=== PATIENT | female | born 1980 | race Caucasian/White ===

== ENCOUNTER 2017-06-26 16:43 | Emergency (ER) | payer MEDICAID, OTHER ==
[~2017-06-26] VITALS: Ht 170.2 cm; Wt 67.1 kg
[2017-06-26 17:11] VITALS: Ht 170.2 cm; Wt 67.1 kg
--- NOTE | 2017-06-26 19:34 | ERD ---
ER Documentation Chief Complaint Chief Complaint bladder and urine pain x 4 days; 6-9 weeks HPI This is a 37-year-old female presents to the ER with urinary frequency, dysuria blood in her urine for the last 4 days. Patient states she is currently 6-9 weeks . She denies any vaginal bleeding. She does admit to some pelvic pain. She denies any fevers or chills. She denies any flank pain. She has not had any nausea vomiting or diarrhea. ROS 12 point review of systems was done, all negative except per HPI. Medications Home Meds Active Scripts Cephalexin* (Keflex*) 500 Mg Capsule, 500 MG PO BID for 7 Days, CAP Prov:RANDI BENSON C 06/26/17 Allergies Allergies: Coded Allergies: tramadol (Unverified Allergy, Unknown, 06/26/17) PMhx/Soc Medical and Surgical Hx: pt denies Surgical Hx Hx Miscellaneous Medical Probl: Yes (lyme disease) Hx Alcohol Use: No Hx Substance Use: No Hx Tobacco Use: No Smoking Status: Never smoker Physical Exam Vitals Vital Signs Date Time Temp Pulse Resp B/P Pulse Ox O2 Delivery O2 Flow Rate FiO2 06/26/17 17:11 98.9 88 16 116/72 100 Physical Exam GENERAL: The patient is well developed and appropriate for usual state of health , in no apparent distress. HEENT: Atraumatic. CHEST: Clear to auscultation bilaterally. There are no rales, wheezes or rhonchi. HEART: Regular rate and rhythm. No murmurs, clicks, rubs or gallops. ABDOMEN: Soft, nontender and nondistended. Good bowel sounds. No rebound or guarding. No gross peritonitis. No gross organomegaly or masses. No Mcghee sign or McBurney point tenderness. BACK: No midline or flank tenderness. NEURO: Alert and oriented. Result Diagram: 06/26/17 9241 Results 24 hrs Laboratory Tests Test 06/26/17 18:55 06/26/17 18:59 Urine Color YELLOW Urine Clarity CLOUDY Urine pH 6.0 Urine Specific [place] 1.016 Urine Ketones NEGATIVEmg/dL Urine Nitrite POSITIVEmg/dL Urine Bilirubin NEGATIVEmg/dL Urine Urobilinogen NEGATIVEmg/dL Urine Leukocyte Esterase 3+Jame/ul Urine Microscopic RBC 15/HPF Urine Microscopic WBC 120/HPF Urine Squamous Epithelial Cells MODERATE/HPF Urine Bacteria MANY/HPF Urine Hemoglobin 1+mg/dL Urine Glucose NEGATIVEmg/dL Urine Total Protein 1+mg/dl White Blood Count 9.910^3/ul Red Blood Count 3.9110^6/ul Hemoglobin 12.9g/dl Hematocrit 37.9% Mean Corpuscular Volume 96.9fl Mean Corpuscular Hemoglobin 33.0pg Mean Corpuscular Hemoglobin Concent 34.0g/dl Red Cell Distribution Width 11.9% Platelet Count 82584^3/UL Mean Platelet Volume 10.2fl Neutrophils % 76.8% Lymphocytes % 15.4% Monocytes % 5.9% Eosinophils % 1.1% Basophils % 0.4% Nucleated Red Blood Cells % 0.0/100WBC Neutrophils # 7.610^3/ul Lymphocytes # 1.510^3/ul Monocytes # 0.610^3/ul Eosinophils # 0.110^3/ul Basophils # 0.010^3/ul Nucleated Red Blood Cells # 0.010^3/ul Beta HCG, Quantitative 05783.0mIU/ml Procedures/MDM This is a 37-year-old female presents to the ER with urinary frequency and dysuria. Patient does have a urinary tract infection. Patient likely has blood in her urine secondary to UTI. Has not had any vaginal bleeding. Patient is blood type A-, and I discussed this finding with my supervising physician Dr. Chavez. Patient is not having any vaginal bleeding and at this time RhoGam is not indicated. I supervising physician agrees with my medical decision making. Also spoke with left breast personal caregiver Dr. Capps regarding this case, as there is no pole or yolk sac and patient's quantitative hCG was over 1500. Patient stable for outpatient follow-up per Dr. Capps. Patient was sent with [facility]. He is to follow-up with her primary care doctor within 1-2 days return to ER sooner if symptoms worsen. My medical decision making sure with the patient she understands and agrees with plan. Departure Diagnosis: Primary Impression: UTI (urinary tract infection) Condition: Stable KELLEYRANDI C Jun 26, 2017 19:34
--- NOTE | 2017-06-26 19:34 | ERD ---
ER Documentation Chief Complaint Chief Complaint bladder and urine pain x 4 days; 6-9 weeks HPI This is a 37-year-old female presents to the ER with urinary frequency, dysuria blood in her urine for the last 4 days. Patient states she is currently 6-9 weeks . She denies any vaginal bleeding. She does admit to some pelvic pain. She denies any fevers or chills. She denies any flank pain. She has not had any nausea vomiting or diarrhea. ROS 12 point review of systems was done, all negative except per HPI. Medications Home Meds Active Scripts Cephalexin* (Keflex*) 500 Mg Capsule, 500 MG PO BID for 7 Days, CAP Prov:RANDI BENSON C 06/26/17 Allergies Allergies: Coded Allergies: tramadol (Unverified Allergy, Unknown, 06/26/17) PMhx/Soc Medical and Surgical Hx: pt denies Surgical Hx Hx Miscellaneous Medical Probl: Yes (lyme disease) Hx Alcohol Use: No Hx Substance Use: No Hx Tobacco Use: No Smoking Status: Never smoker Physical Exam Vitals Vital Signs Date Time Temp Pulse Resp B/P Pulse Ox O2 Delivery O2 Flow Rate FiO2 06/26/17 17:11 98.9 88 16 116/72 100 Physical Exam GENERAL: The patient is well developed and appropriate for usual state of health , in no apparent distress. HEENT: Atraumatic. CHEST: Clear to auscultation bilaterally. There are no rales, wheezes or rhonchi. HEART: Regular rate and rhythm. No murmurs, clicks, rubs or gallops. ABDOMEN: Soft, nontender and nondistended. Good bowel sounds. No rebound or guarding. No gross peritonitis. No gross organomegaly or masses. No Mcghee sign or McBurney point tenderness. BACK: No midline or flank tenderness. NEURO: Alert and oriented. Result Diagram: 06/26/17 2444 Results 24 hrs Laboratory Tests Test 06/26/17 18:55 06/26/17 18:59 Urine Color YELLOW Urine Clarity CLOUDY Urine pH 6.0 Urine Specific [place] 1.016 Urine Ketones NEGATIVEmg/dL Urine Nitrite POSITIVEmg/dL Urine Bilirubin NEGATIVEmg/dL Urine Urobilinogen NEGATIVEmg/dL Urine Leukocyte Esterase 3+Jame/ul Urine Microscopic RBC 15/HPF Urine Microscopic WBC 120/HPF Urine Squamous Epithelial Cells MODERATE/HPF Urine Bacteria MANY/HPF Urine Hemoglobin 1+mg/dL Urine Glucose NEGATIVEmg/dL Urine Total Protein 1+mg/dl White Blood Count 9.910^3/ul Red Blood Count 3.9110^6/ul Hemoglobin 12.9g/dl Hematocrit 37.9% Mean Corpuscular Volume 96.9fl Mean Corpuscular Hemoglobin 33.0pg Mean Corpuscular Hemoglobin Concent 34.0g/dl Red Cell Distribution Width 11.9% Platelet Count 59780^3/UL Mean Platelet Volume 10.2fl Neutrophils % 76.8% Lymphocytes % 15.4% Monocytes % 5.9% Eosinophils % 1.1% Basophils % 0.4% Nucleated Red Blood Cells % 0.0/100WBC Neutrophils # 7.610^3/ul Lymphocytes # 1.510^3/ul Monocytes # 0.610^3/ul Eosinophils # 0.110^3/ul Basophils # 0.010^3/ul Nucleated Red Blood Cells # 0.010^3/ul Beta HCG, Quantitative 14937.0mIU/ml Procedures/MDM This is a 37-year-old female presents to the ER with urinary frequency and dysuria. Patient does have a urinary tract infection. Patient likely has blood in her urine secondary to UTI. Has not had any vaginal bleeding. Patient is blood type A-, and I discussed this finding with my supervising physician Dr. Chavez. Patient is not having any vaginal bleeding and at this time RhoGam is not indicated. I supervising physician agrees with my medical decision making. Also spoke with left breast conciliation court judge Dr. Capps regarding this case, as there is no pole or yolk sac and patient's quantitative hCG was over 1500. Patient stable for outpatient follow-up per Dr. Capps. Patient was sent with [facility]. He is to follow-up with her primary care doctor within 1-2 days return to ER sooner if symptoms worsen. My medical decision making sure with the patient she understands and agrees with plan. Departure Diagnosis: Primary Impression: UTI (urinary tract infection) Condition: Stable KELLEYRANDI C Jun 26, 2017 19:34
--- NOTE | 2017-06-26 19:34 | ERD ---
ER Documentation Chief Complaint Chief Complaint bladder and urine pain x 4 days; 6-9 weeks HPI This is a 37-year-old female presents to the ER with urinary frequency, dysuria blood in her urine for the last 4 days. Patient states she is currently 6-9 weeks . She denies any vaginal bleeding. She does admit to some pelvic pain. She denies any fevers or chills. She denies any flank pain. She has not had any nausea vomiting or diarrhea. ROS 12 point review of systems was done, all negative except per HPI. Medications Home Meds Active Scripts Cephalexin* (Keflex*) 500 Mg Capsule, 500 MG PO BID for 7 Days, CAP Prov:RANDI BENSON C 06/26/17 Allergies Allergies: Coded Allergies: tramadol (Unverified Allergy, Unknown, 06/26/17) PMhx/Soc Medical and Surgical Hx: pt denies Surgical Hx Hx Miscellaneous Medical Probl: Yes (lyme disease) Hx Alcohol Use: No Hx Substance Use: No Hx Tobacco Use: No Smoking Status: Never smoker Physical Exam Vitals Vital Signs Date Time Temp Pulse Resp B/P Pulse Ox O2 Delivery O2 Flow Rate FiO2 06/26/17 17:11 98.9 88 16 116/72 100 Physical Exam GENERAL: The patient is well developed and appropriate for usual state of health , in no apparent distress. HEENT: Atraumatic. CHEST: Clear to auscultation bilaterally. There are no rales, wheezes or rhonchi. HEART: Regular rate and rhythm. No murmurs, clicks, rubs or gallops. ABDOMEN: Soft, nontender and nondistended. Good bowel sounds. No rebound or guarding. No gross peritonitis. No gross organomegaly or masses. No Mcghee sign or McBurney point tenderness. BACK: No midline or flank tenderness. NEURO: Alert and oriented. Result Diagram: 06/26/17 5521 Results 24 hrs Laboratory Tests Test 06/26/17 18:55 06/26/17 18:59 Urine Color YELLOW Urine Clarity CLOUDY Urine pH 6.0 Urine Specific [place] 1.016 Urine Ketones NEGATIVEmg/dL Urine Nitrite POSITIVEmg/dL Urine Bilirubin NEGATIVEmg/dL Urine Urobilinogen NEGATIVEmg/dL Urine Leukocyte Esterase 3+Jame/ul Urine Microscopic RBC 15/HPF Urine Microscopic WBC 120/HPF Urine Squamous Epithelial Cells MODERATE/HPF Urine Bacteria MANY/HPF Urine Hemoglobin 1+mg/dL Urine Glucose NEGATIVEmg/dL Urine Total Protein 1+mg/dl White Blood Count 9.910^3/ul Red Blood Count 3.9110^6/ul Hemoglobin 12.9g/dl Hematocrit 37.9% Mean Corpuscular Volume 96.9fl Mean Corpuscular Hemoglobin 33.0pg Mean Corpuscular Hemoglobin Concent 34.0g/dl Red Cell Distribution Width 11.9% Platelet Count 63582^3/UL Mean Platelet Volume 10.2fl Neutrophils % 76.8% Lymphocytes % 15.4% Monocytes % 5.9% Eosinophils % 1.1% Basophils % 0.4% Nucleated Red Blood Cells % 0.0/100WBC Neutrophils # 7.610^3/ul Lymphocytes # 1.510^3/ul Monocytes # 0.610^3/ul Eosinophils # 0.110^3/ul Basophils # 0.010^3/ul Nucleated Red Blood Cells # 0.010^3/ul Beta HCG, Quantitative 80325.0mIU/ml Procedures/MDM This is a 37-year-old female presents to the ER with urinary frequency and dysuria. Patient does have a urinary tract infection. Patient likely has blood in her urine secondary to UTI. Has not had any vaginal bleeding. Patient is blood type A-, and I discussed this finding with my supervising physician Dr. Chavez. Patient is not having any vaginal bleeding and at this time RhoGam is not indicated. I supervising physician agrees with my medical decision making. Also spoke with left breast laborer construction or leak gang Dr. Capps regarding this case, as there is no pole or yolk sac and patient's quantitative hCG was over 1500. Patient stable for outpatient follow-up per Dr. Capps. Patient was sent with [facility]. He is to follow-up with her primary care doctor within 1-2 days return to ER sooner if symptoms worsen. My medical decision making sure with the patient she understands and agrees with plan. Departure Diagnosis: Primary Impression: UTI (urinary tract infection) Condition: Stable KLELEYRANDI C Jun 26, 2017 19:34
--- NOTE | 2017-06-26 19:40 | RADRPT ---
PROCEDURE: US Pelvis. CLINICAL INDICATION: Vaginal bleeding TECHNIQUE: Multiple sonographic images of the pelvis were obtained utilizing a transabdominal and endovaginal technique. The images were reviewed on a PACS workstation. COMPARISON: None. FINDINGS: A sonolucent structure is seen in the endometrium which measures 1 cm in size and is computer applications engineer a s how age of 5 weeks and 4 days. There is a small amount of free fluid in the right adnexal region. A right ovarian cyst is seen measuring 5.8 cm in maximal diameter. The remainder of the right ovary h as a normal echotexture and measures 6.2 x 5.6 x 6.2 cm. The left ovary has a normal echotexture and measures 3.2 x 1.7 x 2.4 cm. No adnexal masses are noted. IMPRESSION: 1. Small sonolucent structure which may represent a gestational sac and is without evidence of a fe irina pole or yolk sac. Correlation with serial beta HCG levels is suggested as well as a short interv al follow-up. 2. Large right ovarian cyst which may be physiologic in nature. 3. Small amount of free fluid in the right adnexa. RPTAT: HPNM Physician Vj Date Time Electronically viewed and signed by Physician Vj on 06/26/2017 19:39 /
[2017-06-26] MEDS ORDERED: CEPH-443 PO (20:19)
== END 2017-06-26 20:52 | disposition home or self-care (01) ==
LOC: FTE 16:43
DX: O23.41 Unspecified infection of urinary tract in pregnancy, first trimester (principal); R10.2 Pelvic and perineal pain; Z3A.01 Less than 8 weeks gestation of pregnancy
CPT/HCPCS: 36415; 76801; 76817; 81001; 84702; 85025; 86900; 86901; Z7502